=== PATIENT | female | born 1970 | race Native Hawaiian/Other Pacific Islander ===

== ENCOUNTER 2017-12-14 08:37 | Outpatient (CLI) | payer OTHER ==
[~2017-12-14 08:37] MED LIST: ADDERALL20 MG PO; BUPR150T PO; ESTR1TAB13 PO
== END 2017-12-14 18:51 | disposition home or self-care (01) ==
LOC: MAMMO 08:37
DX: Z12.31 Encounter for screening mammogram for malignant neoplasm of breast (principal)

== ENCOUNTER 2019-03-24 15:44 | Outpatient (CLI) | payer OTHER | END 2019-03-24 23:59 | disposition home or self-care (01) | LOC: US 15:44 | DX: R60.0 Localized edema (principal) ==

== ENCOUNTER 2019-06-06 10:33 | Outpatient (CLI) | payer OTHER ==
[2019-06-06 10:58] LABS: PLATELET COUNT 293 K/uL (152-353)
[2019-06-06 11:10] LABS: POTASSIUM 4.2 mmol/L (3.6-5.2)
== END 2019-06-06 20:23 | disposition home or self-care (01) ==
LOC: LABW 10:33
PROVIDERS: Podiatrist
DX: Z01.810 Encounter for preprocedural cardiovascular examination (principal); Z01.811 Encounter for preprocedural respiratory examination; Z01.812 Encounter for preprocedural laboratory examination
CPT/HCPCS: 36415; 80053; 85027; 93005

== ENCOUNTER 2019-06-14 14:59 | Outpatient (CLI) | payer OTHER | END 2019-06-14 19:02 | disposition home or self-care (01) | LOC: RAD 14:59 | DX: Z01.810 Encounter for preprocedural cardiovascular examination (principal); Z01.811 Encounter for preprocedural respiratory examination; Z01.812 Encounter for preprocedural laboratory examination ==

== ENCOUNTER 2020-09-06 10:01 | Outpatient (CLI) | payer OTHER | END 2020-09-06 23:44 | disposition home or self-care (01) | LOC: CT 10:01 | PROVIDERS: ATTEND Nurse Practitioner Family | DX: R51.9 Headache, unspecified (principal) ==

== ENCOUNTER 2021-01-05 07:53 | Emergency (ER) | payer OTHER ==
[~2021-01-05] VITALS: Ht 167.6 cm
[2021-01-05 07:57] VITALS: TEMP 100.7
[2021-01-05] MEDS ORDERED: CELEXA20 MG PO (08:56)
[2021-01-05 09:30] LABS: PLATELET COUNT 243 K/uL (152-353)
[2021-01-05 09:44] LABS: POTASSIUM 3.5 mmol/L (3.6-5.2)
[2021-01-05 10:40] VITALS: BP 115/69
== END 2021-01-05 10:43 | disposition home or self-care (01) ==
LOC: ED 07:53
PROVIDERS: Emergency Medicine Emergency Medical Services
DX: N13.2 Hydronephrosis with renal and ureteral calculous obstruction (principal); Z87.442 Personal history of urinary calculi
CPT/HCPCS: 80048; 81000; 83605; 85027; 87040; 96360; 96361; 96365; 96375; 99284; J0696; J1885; J2270; J2405

== ENCOUNTER 2021-05-22 07:47 | Outpatient (CLI) | payer OTHER ==
[~2021-05-22 07:47] MED LIST changes: +CELEXA20 MG PO
== END 2021-05-22 20:02 | disposition home or self-care (01) ==
LOC: MAMMO 07:47
PROVIDERS: ATTEND Obstetrics & Gynecology
DX: Z12.31 Encounter for screening mammogram for malignant neoplasm of breast (principal)

== ENCOUNTER 2021-08-06 08:26 | Outpatient (CLI) | payer OTHER | END 2021-08-06 19:01 | disposition home or self-care (01) | LOC: MRI 08:26 | PROVIDERS: ATTEND Chiropractor | DX: M25.512 Pain in left shoulder (principal) ==

== ENCOUNTER 2022-05-29 07:39 | Outpatient (CLI) | payer OTHER | END 2022-05-29 19:09 | disposition home or self-care (01) | LOC: MAMMO 07:39 | PROVIDERS: ATTEND Obstetrics & Gynecology | DX: Z12.31 Encounter for screening mammogram for malignant neoplasm of breast (principal) ==

== ENCOUNTER 2023-02-23 03:32 | Emergency (ER) | payer OTHER ==
[~2023-02-23] VITALS: Ht 167.6 cm; Wt 59.9 kg
[2023-02-23 03:38] VITALS: TEMP 98.9
[2023-02-23 04:29] LABS: PLATELET COUNT 282 K/uL (152-353)
[2023-02-23 09:28] VITALS: BP 86/53
== END 2023-02-23 08:38 | disposition home or self-care (01) ==
LOC: ED 03:32
PROVIDERS: Family Medicine
DX: R10.9 Unspecified abdominal pain (principal)
CPT/HCPCS: 36415; 80053; 81000; 85027; 96361; 96374; 96375; 99284; J1885; J2405

== ENCOUNTER 2023-03-25 11:06 | Outpatient (CLI) | payer OTHER ==
[2023-03-25 11:10] VITALS: BP 87/48; TEMP 98.6
== END 2023-03-25 18:58 | disposition home or self-care (01) ==
LOC: INF 11:06
PROVIDERS: ATTEND Family Medicine
DX: U07.1 COVID-19 (principal)
CPT/HCPCS: 96360